=== PATIENT | male | born 1950 | race Two or more races ===

== ENCOUNTER → 2023-08-11 10:00 | Outpatient (REF) | payer MEDICARE, BC, SELFPAY | LOC: DHVS 10:00 | PROVIDERS: ATTENDING PHYSICIAN Surgery Vascular Surgery | DX: I73.9 Peripheral vascular disease, unspecified (principal) | CPT/HCPCS: 93922; 93925 ==

== ENCOUNTER → 2023-09-08 11:09 | Outpatient (REF) | payer MEDICARE, BC, SELFPAY | LOC: HWRAD 11:09 | PROVIDERS: ATTENDING PHYSICIAN Surgery Vascular Surgery | DX: I74.8 Embolism and thrombosis of other arteries (principal); I70.202 Unspecified atherosclerosis of native arteries of extremities, left leg | CPT/HCPCS: 71275; Q9967 ==

== ENCOUNTER → 2023-12-06 07:54 | Outpatient (REF) | payer MEDICARE, BC, SELFPAY ==
[2023-12-07 11:27] LABS: Protein S Total Antigen 168 % (84-134)
[2023-12-07 16:17] LABS: Anti-Thrombin III Activity 115 % (76-128)
[2023-12-07 20:50] LABS: Cardiolipin IgA Antibody <10 APL (<=11); Cardiolipin IgM Antibody <10 MPL (<=12); Cardiolipin Igg Antibody <10 GPL (<=14)
[2023-12-07 21:05] LABS: Beta-2-Glycoprotein I Ab. IgG <10 SGU (<=20); Beta-2-Glycoprotein I Ab. IgM <10 SMU (<=20)
[2023-12-08 00:21] LABS: Beta-2-Glycoprotein I Ab. IgA <10 SAU (<=20)
[2023-12-08 16:47] LABS: Anti-Xa Qualitative Interp Present (Not Present); Anticoagulant Med Neutralizati DOAC-Stop (Not Performed); Hexagonal Phospholipid Confirm Not Performed s (<=7.9); Neutralized PTT-LA Ratio Not Performed (<=1.20); Neutralized dRVTT Screen Ratio 1.58 (<=1.20); PTT-LA Ratio 0.94 (<=1.20); Prothrombin Time 14.2 s (12.0-15.5); Thrombin Time Not Performed s (<=19.5); dRVTT 1.1 Mix Ratio 1.26 (<=1.20); dRVTT Confirmation Ratio 1.25 (<=1.20); dRVTT Screen Ratio 1.62 (<=1.20)
[2023-12-09 21:11] LABS: Factor V Leiden Negative; Factor V Leiden Specimen Whole Blood
[2023-12-10 20:42] LABS: PT (F2) G20210A Variant Negative; Pt Gene Variant-PCR Specimen Whole Blood
== END ==
LOC: REG 07:54
PROVIDERS: ATTENDING PHYSICIAN Internal Medicine Hematology & Oncology
DX: I73.9 Peripheral vascular disease, unspecified (principal)
CPT/HCPCS: 36415; 81240; 81241; 85300; 85305; 85520; 85610; 85613; 85730; 86146; 86147

== ENCOUNTER 2023-12-06 17:40 | Inpatient (IN) | payer MEDICARE, BC, SELFPAY ==
[2023-12-06] VITALS (17 sets, daily range): BP systolic 90–144; BP diastolic 46–83; BMI 27.0
[2023-12-06 09:46] LABS: Hematocrit 40.1 % (39.0-52.0); Hemoglobin 13.4 g/dL (13.0-18.0); Mean Corp Hgb Conc. 33.4 g/dL (33.0-37.0); Mean Corpuscular Hgb 30.7 pg (27.0-31.0); Mean Platelet Volume 9.5 fL (7.4-10.4); Platelet Count 209 10^3/uL (130-400); Red Blood Cell Count 4.36 10^6/uL (4.70-6.10); Red Cell Dist. Width 13.2 % (11.5-14.5); White Blood Cell Count 10.7 10^3/uL (4.8-10.8)
[2023-12-06 09:53] LABS: INR 1.03; PT 13.4 Sec (11.4-14.6)
[2023-12-06 09:54] LABS: APTT 32.1 Sec (23.4-35.0)
[2023-12-06 10:04] LABS: Blood Urea Nitrogen 39 mg/dl (9-20); Carbon Dioxide 26 mmol/L (22-30); Chloride 101 mmol/L (98-107); Estimated Creatinine Clearance 45 ml/min; Glucose 136 mg/dl (70-99); Potassium 4.9 mmol/L (3.5-5.1); Sodium 139 mmol/L (135-145); eGFR 49.16
[2023-12-06 12:55] LABS: Glucose - Point of Care 121 mg/dl (70-99)
[2023-12-06] MEDS: NSS 500 IV (13:31)
--- NOTE | 2023-12-06 13:37 | W.SUR.PREOP ---
Pre-Operative Surgical Note
-
I have examined this patient prior to the performance of the scheduled procedure.
The patient's condition is unchanged from the time of the current History and
Physical and the patient is able to undergo the scheduled procedure.
[2023-12-06 16:10] LABS: ACT-LR - POC 255 Seconds (116-155)
--- NOTE | 2023-12-06 16:39 | CON.INTV ---
Consultation
Consultation Request
Date/Time Consultation Requested: 12-06-23
Date/Time Consultation Performed: 12-06-23
Requesting Provider: Dr Roberson
Performing Provider: Dr Gregory
Reason for Consultation: s/p LLE angiogram
Medical History
-
Chief Complaint: s/p LLE angiogram
History of Present Illness:
Mr Ariel Wtason is a 73/M adm 12-05 after LLE angiography.
During procedure cholesterol plaque showered, suspected embolization. First adm
Received L anterior tibial angioplasty, popliteal shock wave lithotripsy (report pending)
Seen at PACU, hemodyn stable, awake, mild incisional pain reported
Past Medical History
Past Medical History: Other (see A&P for PMH/PSH)
Social History
Tobacco: Former Smoker
Family History
Family History: Reviewed & Not Pertinent
Allergies / Home Medications
Allergies
Allergy/AdvReac Type Severity Reaction Status Date / Time
cefepime Allergy Anaphylaxis Verified 12/02/23 11:07
Home Medications
�Medication �Instructions �Recorded �Confirmed �Last Taken �Type
apixaban 5 mg tablet (Eliquis) 5 mg PO BID 12/02/23 12/06/23 12/02/23 21:30 History
aspirin 81 mg tablet,delayed 81 mg PO DAILY 12/02/23 12/06/23 12/06/23 05:00 History
release
atorvastatin 40 mg tablet 40 mg PO DAILY 12/02/23 12/06/23 12/05/23 21:30 History
cyanocobalamin (vitamin B-12) 1,000 mcg PO DAILY 12/02/23 12/06/23 12/05/23 21:30 History
1,000 mcg tablet (Vitamin B-12)
empagliflozin 10 mg tablet 10 mg PO DAILY 12/02/23 12/06/23 12/02/23 06:30 History
(Jardiance)
furosemide 20 mg tablet 20 mg PO DAILY 0612/02/23 12/05/23 06:30 History
gabapentin 100 mg capsule 200 mg PO TID 12/02/23 12/06/23 12/05/23 21:30 History
insulin aspart U-100 100 unit/mL 2 - 7 unit SC MEALS PRN Sliding 12/02/23 12/02/23 Unknown History
(3 mL) subcutaneous pen (Novolog Scale
FlexPen U-100 Insulin aspart)
insulin degludec 100 unit/mL (3 60 unit SC DAILY 12/02/23 12/06/23 12/06/23 05:00 History
mL) subcutaneous pen (Tresiba
FlexTouch U-100 insulin)
insulin regular human 100 unit/mL 18 unit SC MEALS 12/02/23 12/06/23 12/06/23 05:00 History
(3 mL) subcutaneous pen (Novolin R
FlexPen)
latanoprost (PF) 0.005 % eye drops 1 drp BOTH EYES HS 12/02/23 12/06/23 12/05/23 21:30 History
in a dropperette
levothyroxine 125 mcg tablet 125 mcg PO DAILY 12/02/23 12/06/23 12/06/23 05:00 History
metoprolol succinate 100 mg 50 mg PO BID 12/02/23 12/06/23 12/05/23 21:30 History
tablet,extended release 24 hr
omega 2-odx-shg-fish oil 1,000 mg 1 cap PO DAILY 12/02/23 12/02/23 12/05/23 06:30 History
(120 mg-180 mg) capsule (Fish Oil)
pantoprazole 40 mg tablet,delayed 40 mg PO DAILY 12/02/23 12/06/23 12/05/23 21:30 History
release
sacubitril 49 mg-valsartan 51 mg 1 tab PO BID 12/02/23 12/06/23 12/05/23 21:30 History
tablet (Entresto)
spironolactone 25 mg tablet 25 mg PO DAILY 12/02/23 12/02/23 12/05/23 06:30 History
Nervx B-12 1 cap PO BID 12/06/23 12/05/23 21:30 History
semaglutide 0.25 mg or 0.5 mg (2 0.25 mg SC QWEEK 12/06/23 12/06/23 12/05/23 06:30 History
mg/1.5 mL) subcutaneous pen
injector (Ozempic)
Review of Systems
-
History Source: Patient
All other systems: Negative unless noted
Constitutional: Fatigue
Cardiac: Other (incisional pain at R groin)
Vitals / Labs / Diagnostic Testing
Vital Signs
Temp Pulse Resp BP Pulse Ox
97.5 F 64 16 134/62 100
12/06/23 12:30 12/06/23 12:30 12/06/23 12:30 12/06/23 12:30 12/06/23 12:30
Laboratory Results
12/06/23
09:22
PT 13.4
INR 1.03
APTT 32.1
Diagnostic Testing:
Physical Exam
-
HEENT: Normocephalic and Moist Mucous Membranes
Cardiovascular: Regular Rhythm, Murmur (n), Other (R BKA) and Other (L 2nd toe necrosis)
Respiratory: Clear and Non-Labored Respirations
GI: Soft, Non Distended and Non Tender
Neurology: Awake, Oriented and No Motor Deficits
Skin: Warm
General: Respiratory Distress (n)
Assessment
-
Assessment:
Mr Ariel Watson is a 73/M adm 12-05 after LLE angiography. During procedure cholesterol plaque showered. First DH adm
Impression:
PAD
S/p L anterior tibial angioplasty, popliteal shock wave lithotripsy
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
PAD
DM
HTN
HLD
Hypothyroidism
R BKA
Former smoker
Plan:
Postoperative surgical intensive care unit monitoring
Supplemental oxygen as needed
Incentive spirometry
Aspiration precautions
Neuro and vascular checks per protocol
Suspected cholesterol plaque embolization reported
Vascular surgery following-correspondence and operative notes reviewed
DVT prophylaxis
Early nutrition
Early mobilization
Critical care time: 35 min
[2023-12-06 17:04] LABS: ACT-LR - POC 244 Seconds (116-155)
[2023-12-06 18:18] LABS: Glucose - Point of Care 111 mg/dl (70-99)
[2023-12-06 18:38] LABS: Hematocrit 34.3 % (39.0-52.0); Hemoglobin 12.1 g/dL (13.0-18.0); Mean Corp Hgb Conc. 35.3 g/dL (33.0-37.0); Mean Corpuscular Volume 87.9 fL (80.0-94.0); Mean Platelet Volume 9.5 fL (7.4-10.4); Platelet Count 185 10^3/uL (130-400); Red Cell Dist. Width 13.5 % (11.5-14.5); White Blood Cell Count 8.9 10^3/uL (4.8-10.8)
[2023-12-06 18:51] LABS: INR 1.29; PT 15.9 Sec (11.4-14.6)
[2023-12-06] MEDS: NSS 1000 IV (18:52)
--- NOTE | 2023-12-06 18:55 | W.IMMPOSTOP ---
Surgical Immed Post Op Note
-
Primary Surgeon: Dr. Sravan Roberson III, MD
Assisting Surgeon: Dr. Chuckie Tobin MD, PhD (PGY-1)
Pre-op Diagnosis: Peripheral occlusive vascular disease left lower extremity
Post-op Diagnosis: Peripheral occlusive vascular disease left lower extremity
Procedure Performed: Diagnostic arteriogram, intravascular lithotripsy of the popliteal artery, proximal AT, PT trunk, balloon angioplasty, catheter directed lysis with tPA
Anesthesia Type: MAC
Specimen / Cultures: None
Estimated Blood Loss: 50cc
Complications: None
Operative Findings: The patient was brought to the OR and placed in the supine position. Following induction with anesthesia, the patient was prepped and draped in usual sterile fashion. C arm was used to identify the superior and inferior
boundaries of the femoral head and these were marked at the skin level. Ultrasound guidance was then used to identify the common femoral artery and local anesthetic was injected into the subcutaneous tissue. Micropuncture needle was used to access
the right FAMILY SUPPORT COORDINATOR. This was upsized to a 5-yoruba sheath over wire. Then using a woodward's hook catheter and guidewire, we were able to access the abdominal aorta. Diagnostic angiogram showed patient iliac vessels bilaterally. We then selected the left
external iliac and femoral artery with a guidewire followed by a quickcross catheter. Diagnostic arteriogram showed a patent iliofemoral system and SFA but with occlusive disease in the behind knee popliteal artery, proximal AT, and PT trunk at the
bifurcation of the peroneal and TP arteries. Distally, there was runoff in the AT, minimal run off in the peroneal artery, and no flow in the PT artery. At this point, thrombus was noted on arteriogram, limiting flow to the AT, peroneal, and PT
vessels. The decision was made to inject tPA locally in the AT and peroneal artery. Intravascular lithotripsy was then performed in the proximal AT, PT trunk, and popliteal artery. After this, completion arteriogram showed improved flow in the AT
and peroneal artery, with sluggish flow similar to baseline in the PT artery. The sheath was removed and perclose device was used to close the right groin access site. The patient had a strong doppler signal in the left DP and faint doppler signal
in the left PT. The patient was transferred to the PACU in stable condition and started on a heparin gtt.
[2023-12-06 19:04] LABS: Blood Urea Nitrogen 34 mg/dl (9-20); Calcium 9.1 mg/dl (8.4-10.2); Carbon Dioxide 23 mmol/L (22-30); Chloride 106 mmol/L (98-107); Estimated Creatinine Clearance 67 ml/min; Glucose 118 mg/dl (70-99); Potassium 4.6 mmol/L (3.5-5.1); Sodium 137 mmol/L (135-145); eGFR > 60.00
--- NOTE | 2023-12-06 19:05 | OR.RPT ---
Operative Report
Operative Report
Date of Operation: 12/06/2023
Pre Op Diagnosis: Critical limb threatening ischemia, left lower extremity manifested by necrotic nonhealing toe wound
Post Op Diagnosis: Critical limb threatening ischemia, left lower extremity manifested by necrotic nonhealing toe wound
Procedure:
1.) Balloon angioplasty of anterior tibial artery (2 mm x 80 mm distally; 3 mm x 150 mm proximally)
2.) Balloon angioplasty of peroneal artery (2 mm x 80 mm)
3.) Intravascular lithotripsy to tibioperoneal trunk stenosis (4 mm x 60 mm M5+ Shockwave balloon)
4.) Intravascular lithotripsy to popliteal artery stenosis (4 mm x 60 mm M5+ Shockwave balloon)
5.) Intravascular lithotripsy to anterior tibial artery origin stenosis (4 mm x 60 mm M5+ Shockwave balloon)
6.) Direct arterial injection of TPA to anterior tibial and peroneal artery
7.) Diagnostic [id number] arteriogram
8.) Diagnostic left lower extremity arteriogram
9.) Ultrasound-guided percutaneous access to the right common femoral artery
10.) ProGlide closure to right femoral artery access
Surgeon: Sravan Roberson III, MD
Jointer Operator: Chuckie Tobin MD PhD, PGY1
Anesthesia: Sedation with local
Fluoroscopy:
68.4 min
198 mGy
35.08 Gy.cm2
Complications: None
Estimated Blood Loss: 50 cc
History and Indications for Procedure: 73-year-old male with critical limb threatening ischemia of the left lower extremity manifested by nonhealing necrotic second toe wound
Procedure in Detail: Ariel Watson was correctly identified and placed supine on the operating table. After adequate induction of anesthesia the bilateral groins were prepped and draped in the usual sterile fashion. A timeout was performed with
the nursing and anesthesia staff confirming the patient's identity as well as the nature and laterality of the procedure.
The right common femoral artery was identified under ultrasound guidance. The artery was patent. The superior and inferior aspects of the femoral head were identified with radiographic guidance and marked at the skin level. The proposed puncture
site was infiltrated with local anesthesia. We saved a copy of the ultrasound image to the medical record. Under ultrasound guidance we accessed the right common femoral artery with a micropuncture needle and upsized to a 5 Fr sheath over a Aspida
wire. The wire and a Shepherds hook flush catheter were advanced into the distal abdominal aorta and a diagnostic aorto-biiliac arteriogram was performed:
AORTO-ILIAC ARTERIOGRAM:
Aorta: Widely patent with no stenosis identified
Right common iliac artery: Widely patent with no stenosis identified
Right external iliac artery: Widely patent with no stenosis identified
Left common iliac artery: Widely patent with no stenosis identified
Left external iliac artery: Widely patent with no stenosis identified
Under roadmap guidance using a Glidewire and the Shepherds hook catheter we selected the left common iliac artery and then the external iliac artery. A catheter was tracked up and over the aortic bifurcation and placed in the distal external iliac
artery. A diagnostic left lower extremity arteriogram was then performed which demonstrated the following:
LEFT LOWER EXTREMITY:
Common femoral artery: Patent with no stenosis identified
Profunda femoral artery: Patent with no stenosis identified
Superficial femoral artery: Patent with no stenosis identified
Popliteal artery: Patent. Focal moderate to high-grade stenosis behind the knee, calcified. Below-knee popliteal artery patent
Anterior tibial artery: High-grade focal stenosis at the origin. Patent distally. Stenosis identified near the ankle. The dorsalis pedis artery appears to occlude and significant small vessel disease is identified in the foot
Tibioperoneal trunk: Patent. Calcified stenosis identified with focal calcified plaque near the AT origin
Peroneal artery: Patent to the ankle
Posterior tibial artery: Patent proximally for a short segment, occludes thereafter with no distal reconstitution. Severe small vessel occlusive disease identified in the plantar distribution.
ENDOVASCULAR INTERVENTION: Systemic heparin was administered. Selected the superficial femoral artery and popliteal artery with a Glidewire and woodward's hook catheter. Exchanged out for a 6 Fr 90 cm sheath over a StorTirendo wire. Radiopaque tip was
placed in the popliteal artery. The anterior tibial artery and the peroneal artery were alejandra wired in an attempt to perform intravascular lithotripsy. On subsequent arteriograms evidence of nonocclusive thrombus was identified in the popliteal
artery and tibioperoneal trunk and occlusive thrombus was identified in the anterior tibial artery and peroneal artery. At this point we altered the approach. I advanced a Quickcross catheter down the distal anterior tibial artery at the ankle. 8
mg of tPA was injected into the anterior tibial artery, 4 mg distally into the foot and an additional 4 mg slowly as the catheter was pulled back across the length of the anterior tibial artery. After several minutes subsequent arteriogram
demonstrated sluggish flow in the anterior tibial artery with what appeared to be a distal occlusion. We were able to navigate the 0.014 wire distally across the ankle and into the foot. I performed balloon angioplasty on the distal anterior
tibial artery with a 2 mm x 80 mm angioplasty balloon. In the mid to proximal segments I performed balloon angioplasty with a 3 mm x 80 mm angioplasty balloon, including the AT origin. Following this there was still evidence of distal occlusion in
the AT. I made an attempt to pass the Penumbra CAT Rx catheter over the 014 wire in the anterior tibial artery but was unsuccessful at navigating around the proximal AT. I therefore abandoned additional attempts. I once again performed balloon
angioplasty on the anterior tibial artery with the same balloons and subsequent arteriogram then demonstrated improved flow through the anterior tibial artery and into the foot, similar to what was seen on the initial arteriogram. Once again
identified was a high-grade stenosis at the AT origin which seemed not to respond fully to angioplasty alone.
I then focused my attention on addressing the tibioperoneal trunk and peroneal artery thrombus. I navigated a Quickcross catheter down the tibioperoneal trunk and distal peroneal artery. I injected 4 mg of tPA slowly while pulling the catheter
back across the entire length of peroneal artery. Subsequent arteriogram demonstrated residual thrombus and disease at the origin of the peroneal artery. I performed balloon angioplasty on the proximal peroneal artery and TP trunk with both a 2 mm
and a 3 mm angioplasty balloon. Subsequent arteriograms demonstrated sluggish flow through the peroneal artery with no significant improvement. I once again performed balloon angioplasty using the same 2 mm and 3 mm angioplasty balloons with
longer inflation times. Subsequent arteriogram demonstrated some improvement in flow through the TP trunk and proximal peroneal however there was segmental occlusion distally. I did not make an attempt to pass the Penumbra catheter into the
peroneal artery given that I had significant challenges in doing this with the anterior tibial.
Once we had reestablished distal flow with the interventions above, we then focused our attention on the calcified residual stenosis in the TP trunk, AT origin and popliteal artery. Under roadmap guidance I brought into position a 4 mm x 60 mm M5+
Shockwave balloon. This was positioned in the tibioperoneal trunk initially. Alternating rounds of lithotripsy pulse delivery at sub-nominal pressure and angioplasty at sub-nominal pressure was performed across the TP trunk stenosis. In between
rounds of pulse delivery and angioplasty the balloon was deflated and repositioned under roadmap guidance. We then pulled the balloon back and treated the focal popliteal artery stenosis behind the knee in a similar fashion. Following this I
re-selected the anterior tibial artery with the 0.014 wire. The balloon was readvanced across the anterior tibial artery origin stenosis. We then delivered the remaining pulses to the proximal/origin anterior tibial artery stenosis at sub-nominal
pressure. A total of 300 pulses were delivered.
COMPLETION ARTERIOGRAM: Patent popliteal artery with no significant residual stenosis. Improved appearance of the proximal/origin anterior tibial artery stenosis with some residual stenosis identified. Patent anterior tibial artery distally to the
foot. Again demonstrated was an occluded dorsalis pedis artery with significant small vessel disease in the foot. Posterior tibial artery was occluded with no distal reconstitution identified. Significant small vessel disease in the plantar
distribution. The tibioperoneal trunk was patent. Peroneal artery was occluded with segmental distal reconstitution identified.
Satisfied with this result we concluded the procedure. The sheath tip was pulled back into the right external iliac artery. A single Pro-glide closure device was used to close the right femoral artery access after removal of the sheath and wire.
The patient tolerated the procedure well and was taken to the recovery area in stable condition. The patient had an easily audible Doppler signal in the left DP at the conclusion of the case.
Attestation: I was present and responsible for the entire procedure.
Signed:
Sravan Roberson III, MD
[facility]
[phone] (fzvl)
[2023-12-06 19:16] LABS: APTT > 200 Sec (23.4-35.0)
--- NOTE | 2023-12-06 19:43 | PTCARENOTE ---
Rec'd patient from PACU. VSS. +Doppler dp and pt on ADDY. +Popliteal doppler pulse on RLE. Dr. Boyer notified PTT >200. Heparin gtt not initiated. RN instructed to recheck PTT in 4 hours.
[2023-12-06] MEDS: NOVOLOG FLEXPEN-HIGH RESISTANCE SC (20:06)
[2023-12-06] MEDS: TOPROL XL 50 MG PO (20:51)
[2023-12-06] MEDS: ENTRESTO 49 MG/51 MG 1 TAB PO (20:51)
[2023-12-06] MEDS: NEURONTIN 200 MG PO (21:39)
[2023-12-06] MEDS: XALATAN OPHTHALMIC SOLUTION 1 DROP BOTH EYES (21:39)
[2023-12-06 21:53] LABS: Glucose - Point of Care 161 mg/dl (70-99)
[2023-12-06] MEDS: HEPARIN 25000 UNITS/250 ML IV (23:25)
--- NOTE | 2023-12-06 23:34 | PTCARENOTE ---
PTT 33.0. Heparin gtt initiated. Next PTT due at 0530.
[2023-12-07] VITALS (14 sets, daily range): BP systolic 91–132; BP diastolic 37–66; BMI 27.0
[2023-12-07] MEDS: TYLENOL 650 MG PO (02:10)
--- NOTE | 2023-12-07 03:49 | DOWNTIME ---
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 Downtime documentation of patient's care, including medication administrations, has been reconciled in the electronic record per guidelines. Refer to the
patient's paper chart under the miscellaneous tab to see printed paper medication records and downtime forms.
--- NOTE | 2023-12-07 04:50 | PTCARENOTE ---
Neurovascular checks unchanged. VSS. No complaints.
[2023-12-07] MEDS: SYNTHROID 125 MCG PO (05:36)
[2023-12-07 05:50] LABS: Hematocrit 31.4 % (39.0-52.0); Hemoglobin 10.5 g/dL (13.0-18.0); Mean Corp Hgb Conc. 33.4 g/dL (33.0-37.0); Mean Corpuscular Hgb 30.4 pg (27.0-31.0); Mean Platelet Volume 9.8 fL (7.4-10.4); Platelet Count 169 10^3/uL (130-400); Red Blood Cell Count 3.45 10^6/uL (4.70-6.10); Red Cell Dist. Width 13.2 % (11.5-14.5); White Blood Cell Count 9.2 10^3/uL (4.8-10.8)
[2023-12-07 05:56] LABS: INR 1.21; PT 15.1 Sec (11.4-14.6)
[2023-12-07 05:58] LABS: APTT 102.5 Sec (23.4-35.0)
[2023-12-07 06:34] LABS: Blood Urea Nitrogen 32 mg/dl (9-20); Calcium 8.5 mg/dl (8.4-10.2); Carbon Dioxide 19 mmol/L (22-30); Chloride 108 mmol/L (98-107); Estimated Creatinine Clearance 74 ml/min; Glucose 171 mg/dl (70-99); Potassium 4.7 mmol/L (3.5-5.1); Sodium 136 mmol/L (135-145); eGFR > 60.00
[2023-12-07] MEDS: NOVOLOG FLEXPEN-HIGH RESISTANCE 2 UNITS SC (08:06)
[2023-12-07] MEDS: VITAMIN B-12 1000 MCG PO (08:07)
[2023-12-07] MEDS: LASIX 20 MG PO (08:07)
[2023-12-07] MEDS: JARDIANCE 10 MG PO (08:07)
[2023-12-07] MEDS: TOPROL XL 50 MG PO (08:07)
[2023-12-07] MEDS: LIPITOR 40 MG PO (08:07)
[2023-12-07] MEDS: ASPIR LOW (ENTERIC COATED) 81 MG PO (08:07)
[2023-12-07] MEDS: ALDACTONE 25 MG PO (08:07)
[2023-12-07] MEDS: ENTRESTO 49 MG/51 MG 1 TAB PO (08:07)
[2023-12-07] MEDS: PROTONIX 40 MG PO (08:07)
[2023-12-07] MEDS: NEURONTIN 200 MG PO (08:08)
[2023-12-07] MEDS: LANTUS 0.599999999999999978 UNITS SC (08:10)
[2023-12-07 08:16] LABS: Glucose - Point of Care 185 mg/dl (70-99)
--- NOTE | 2023-12-07 08:44 | W.PN.VS ---
Addendum entered and electronically signed by Oleg Gaytan MD 12/07/23 08:57:
Seen and examined with GONZALES Rodriguez and GONZALES Crain. Patient without significant complaints this morning. No significant pain in his left foot. Abdomen is soft, nondistended, nontender. Right groin puncture site flat, no hematoma. Left foot warm with
dopplerable signals. Second toe dry gangrene stable. Plan/as discussed and noted below. Resume anticoagulation. For lower extremity venous ultrasound today. Further plan for any further revascularization per Dr. Roberson. Can follow-up in the
office with him.
Original Note:
Today's Communication / Plan
-
Seen and assessed with Dr. Gaytan
Assessment/Plan
-
Assessment: 73-year-old male POD #1
Balloon angioplasty of anterior tibial artery (2 mm x 80 mm distally; 3 mm x 150 mm proximally)
Balloon angioplasty of peroneal artery (2 mm x 80 mm)
Intravascular lithotripsy to tibioperoneal trunk stenosis (4 mm x 60 mm M5+ Shockwave balloon)
Intravascular lithotripsy to popliteal artery stenosis (4 mm x 60 mm M5+ Shockwave balloon)
Intravascular lithotripsy to anterior tibial artery origin stenosis (4 mm x 60 mm M5+ Shockwave balloon)
Direct arterial injection of TPA to anterior tibial and peroneal artery
Diagnostic dhurg-dd-jkpzu arteriogram
Diagnostic left lower extremity arteriogram
Ultrasound-guided percutaneous access to the right common femoral artery
ProGlide closure to right femoral artery access
Plan:
-Resume Eliquis today, DC heparin
-Lower extremity venous ultrasound
-October DC after ultrasound complete
-Patient aware of follow-up in office
Subjective Data
-
Date of Service: December 07, 2023
Patient seen and examined at bedside, offers no complaints. Denies nausea, vomiting, fever, and chills. Denies pain at left foot. Reports eagerness for discharge to home.
Objective Data
-
Vital Signs
Temp Pulse Resp BP Pulse Ox
99.7 F 80 25 100/54 93
12/07/23 04:17 12/07/23 06:00 12/07/23 06:00 12/07/23 06:00 12/07/23 06:00
Intake and Output
12/06/23 12/07/23 12/08/23
06:59 06:59 06:59
Intake Total 1060 / 1060
Output Total 950 / 950
Balance 110 / 110
Intake:
IV fluids (Total) 1060 / 1060
nss 1060 / 1060
Output:
Urine, Voided 950 / 950
Lab Results
12/07/23 05:32
12/07/23 05:32
Calcium 8.5 mg/dl (8.4-10.2) 12/07/23 05:32
Physical Exam
-
AAOx3, no apparent distress, resting in bed comfortably
No tachycardia
No dyspnea on room air
ABD flat, nontender, nondistended
Right groin dressing CDI, no evidence of hematoma, all surrounding compartments soft, Exofin glue and CDI
Left DP signal present, foot warm
[2023-12-07] MEDS: ELIQUIS 5 MG PO (08:47)
--- NOTE | 2023-12-07 09:53 | PTCARENOTE ---
Received pt awake and alert.Speech is appropriate.+VALDEZ.Pt ambulates with right leg prosthetic.Denies pain.SR with 1st degree AVB noted.Heparin gtt discontinued as ordered.POX 94% on RA.Lungs CTA.Appetite good.BM x2.Voiding yellow urine.Right groin
incision intact with surgical adhesive.No drainage noted.Plan of care discussed.
--- NOTE | 2023-12-07 10:08 | WOUNDNOTE ---
L 2ND TOE MEDIAL
--- NOTE | 2023-12-07 10:08 | WOUNDNOTE ---
L 2ND TOE PLANTAR
--- NOTE | 2023-12-07 10:09 | WOUNDNOTE ---
HAIDER RN note: Patient admitted with critical limb ischemia L foot.
See H&P for complete history.
PMH: R BKA 2019, CABG 2013, PAD,HTN,PR,DM, Stroke and diabetic neuropathy.
Wound Location and type/assessment: Patient admitted with: L 2nd toe medially and plantar with black eschar, skin warm and dry. Patient had balloon angioplasty for occluded dorsalis pedis and posterior tibial artery on 12/[address] Roberson. Patient
for discharge later today per nurse Page. Patient reports he has been keeping wound dry with Betadine swab and dry dressing, has supplies at home. L heel blanchable red, patient states it is a little sore. Pillow in use under L leg to offload heel.
Patient turned to side, sacrum is intact. R BKA site with incisional scar otherwise intact.
Appetite: Good.
Pressure redistribution devices in place: On air mattress, turns self.
Plan: Betadine and dry dressing. Reviewed wound care with patient. Applied silicone foam to L heel to protect. Called SPD for Betadine swabs, nurse Page made aware and will add to wound care supplies to take upon discharge. Will confirm orders with
vascular and updated nurse. Updated care plan and discharge instructions.
Patient confirmed he is scheduled to follow up with vascular upon discharge.
Note to case management of equipment requested for discharge: None.
--- NOTE | 2023-12-07 10:20 | W.PN.INTV ---
Documented by User: Susanna Orlando, Resident, 12/07/23 10:24
Today's Communication / Plan
Recommendations
IS
Aspiration precautions
Assessment
-
Assessment:
Mr Ariel Watson is a 73/M adm 12-05 after LLE angiography. During procedure cholesterol plaque showered. First DH adm
Impression:
PAD
S/p L anterior tibial angioplasty, popliteal shock wave lithotripsy
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
PAD
DM
HTN
HLD
Hypothyroidism
R BKA
Former smoker
Plan:
Postoperative surgical intensive care unit monitoring
Supplemental oxygen as needed
Incentive spirometry
Aspiration precautions
Neuro and vascular checks per protocol
Suspected cholesterol plaque embolization reported
Vascular surgery following-correspondence and operative notes reviewed
Lower extremity venous ultrasound as per vascular
Further follow up as outpatient
DVT prophylaxis- resume anticoagulation
Early nutrition
Early mobilization
Subjective Dataa
Subjective Data
Date of Service:
Date of Service: December 07, 2023
Chief Complaint: Change Advisor Follow Up
Subjective:
Patient was seen at bedside and had no acute overnight events.
Review of Systems
General: Other (negative unless stated otherwise)
Objective Data
Data Reviewed
Vital Signs / I&O / Oxygen:
Vital Signs
Temp Pulse Resp BP Pulse Ox
98.2 F 77 15 112/52 95
12/07/23 08:30 12/07/23 09:45 12/07/23 09:45 12/07/23 09:04 12/07/23 08:30
Intake and Output
12/06/23 12/07/23 12/08/23
06:59 06:59 06:59
Intake Total 1060 / 1060 240 / 240
Output Total 950 / 950 60 / 60
Balance 110 / 110 180 / 180
SaO2 95
Nasal Cannula flow liters per 4
minute
Physical Exam
General: Comfortable
HEENT: Normocephalic
Cardiovascular: S1-S2 and Other (L 2nd toe necrosis)
Respiratory: Clear
GI: Soft, Non Distended and Non Tender
Neurology: Awake, Alert and Oriented
Labs/Micro/Reports
Lab Data
12/07/23 05:32
12/07/23 05:32
Laboratory Results
12/06/23 12/06/23 12/06/23
18:30 18:35 22:47
PT 15.9 H
INR 1.29
APTT > 200 H* Cancelled 33.0
12/07/23
05:32
PT 15.1 H
INR 1.21
APTT 102.5 H

Documented by User: Jareth Gregory MD 12/07/23 12:31
Today's Communication / Plan
Recommendations
IS
Aspiration precautions
D/c per vasc sx
Assessment
-
Assessment:
Mr Ariel Watson is a 73/M adm 12-05 after LLE angiography. During procedure cholesterol plaque showered. First DH adm
Impression:
PAD
S/p balloon angioplasty of L anterior tibial/peroneal, lithotripsy of tibioper trunk, popliteal stenosis and ant tibial arteries: 12-05
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
PAD
DM
HTN
HLD
Hypothyroidism
R BKA
Former smoker
Plan:
Postoperative surgical intensive care unit monitoring completed
Supplemental oxygen as needed
Incentive spirometry
Aspiration precautions
Neuro and vascular checks per protocol
Suspected cholesterol plaque embolization reported: no clinical evidence of livedo reticularis on physical exam
Vascular surgery following-correspondence and operative notes reviewed
Lower extremity venous ultrasound as per vascular
Further follow up as outpatient
DVT prophylaxis- resume anticoagulation
Early nutrition
Early mobilization
Disposition per vasc sx
For d/c today
Reconsult as needed
ATTENDING PHYSICIAN ATTESTATION:
(Follow-up Visit:)
I personally saw and evaluated the patient along with the Resident Dr Orlando.
Discussed with Resident and discussed in rounds with MDT.
I agree with Resident�s findings and plan as documented in the resident�s note, which was edited by myself.
D/w Mr Watson
Subjective Dataa
Subjective Data
Subjective:
Patient was seen at bedside and had no acute overnight events.
Denies major complaints
Seen at bedside with GLOBAL ANALYTICS HEAD
Objective Data
Physical Exam
HEENT: Moist Mucous Membranes
Cardiovascular: Regular Rhythm and JVD (n)
Respiratory: Non-Labored Respirations and Stridor (n)
Neurology: AO x 3 and No Motor Deficits
Skin: Other (L 2nd toe necrosis)
--- NOTE | 2023-12-07 10:43 | CM ---
property utilization manager reviewed patient's chart and met with patient and patient lives with spouse in a 2 story home, patient is independent with adl's and ambulation, patient with prothesis. Patient has a prescription plan and uses [facility], home no
needs when stable.
Plan; Home no needs.
[2023-12-07] MEDS: NOVOLOG FLEXPEN-HIGH RESISTANCE 4 UNITS SC (11:45)
[2023-12-07 11:59] LABS: Glucose - Point of Care 241 mg/dl (70-99)
--- NOTE | 2023-12-07 14:15 | W.DS.TRANS ---
DC Summary - Aircraft Systems Technician
-
Discharge Instructions:
Sleep Apnea Risk Intermediate
Discharge Diagnosis/Procedures Balloon angioplasty of anterior tibial artery (2
mm x 80 mm distally; 3 mm x 150 mm proximally)
Balloon angioplasty of peroneal artery (2 mm x
80 mm)
Intravascular lithotripsy to tibioperoneal trunk
stenosis (4 mm x 60 mm M5+ Shockwave balloon)
Intravascular lithotripsy to popliteal artery
stenosis (4 mm x 60 mm M5+ Shockwave balloon)
Intravascular lithotripsy to anterior tibial
artery origin stenosis (4 mm x 60 mm M5+
Shockwave balloon)
Direct arterial injection of TPA to anterior
tibial and peroneal artery
ProGlide closure to right femoral artery access
Diet As tolerated
Activity No strenuous activity
Driving Restrictions As prior to admission
Bathing Restrictions OK to Shower
Instructions:
Stand-Alone Forms: DC Instr - Vascular OR
Changes to Home Medications: No
Discharge Medications:
DC Medications w/original date entered in [employer]
apixaban 5 mg tablet (Eliquis) 5 mg PO BID Blood Clot Prevention/Tx 12/02/23
aspirin 81 mg tablet,delayed release 81 mg PO DAILY Blood Clot Prevention/Tx 12/02/23
atorvastatin 40 mg tablet 40 mg PO DAILY High Cholesterol 12/02/23
cyanocobalamin (vitamin B-12) 1,000 mcg tablet (Vitamin B-12) 1,000 mcg PO DAILY Supplement 12/02/23
empagliflozin 10 mg tablet (Jardiance) 10 mg PO DAILY Diabetes 12/02/23
furosemide 20 mg tablet 20 mg PO DAILY Fluid Retention/Swelling 12/02/23
gabapentin 100 mg capsule 200 mg PO TID Pain 12/02/23
insulin aspart U-100 100 unit/mL (3 mL) subcutaneous pen (Novolog FlexPen U-100 Insulin aspart) 2 - 7 unit SC MEALS PRN Sliding Scale 12/02/23
insulin degludec 100 unit/mL (3 mL) subcutaneous pen (Tresiba FlexTouch U-100 insulin) 60 unit SC DAILY Diabetes 12/02/23
insulin regular human 100 unit/mL (3 mL) subcutaneous pen (Novolin R FlexPen) 18 unit SC MEALS Diabetes 12/02/23
latanoprost (PF) 0.005 % eye drops in a dropperette 1 drp BOTH EYES HS Eye Condition 12/02/23
levothyroxine 125 mcg tablet 125 mcg PO DAILY Thyroid 12/02/23
metoprolol succinate 100 mg tablet,extended release 24 hr 50 mg PO BID Heart Failure 12/02/23
omega 3-wpa-hwo-fish oil 1,000 mg (120 mg-180 mg) capsule (Fish Oil) 1 cap PO DAILY Supplement 12/02/23
pantoprazole 40 mg tablet,delayed release 40 mg PO DAILY GERD 12/02/23
sacubitril 49 mg-valsartan 51 mg tablet (Entresto) 1 tab PO BID Heart Failure 12/02/23
spironolactone 25 mg tablet 25 mg PO DAILY Fluid Retention/Swelling 12/02/23
Nervx B-12 1 cap PO BID Supplement 12/06/23
semaglutide 0.25 mg or 0.5 mg (2 mg/1.5 mL) subcutaneous pen injector (Ozempic) 0.25 mg SC QWEEK Diabetes 12/06/23
Home Medication Changes
Pending Results: No
--- NOTE | 2023-12-07 14:15 | W.DCSUMMARY ---
Discharge Summary
Discharge Data
Date of Admission: 12/06/23
Date of Discharge: 12/07/23
-
Pending Results: No
Hospital Course
Attending: Karol
Consultants: Pulmonary medicine
Allergies: Cefepime
Procedure with date: 12/06/2023: Balloon angioplasty of the AT artery x 2, balloon angioplasty of peroneal artery, IV L to tibioperoneal trunk, popliteal, AT artery origin, direct arterial injection of tPA to AT and peroneal artery, Pro-glide closure
to right femoral artery access
History of present illness: The patient is an 73-year-old male with multiple medical conditions including: Diabetes, peripheral arterial disease, hypertension, hyperlipidemia, thyroid disease, right BKA, cataract surgery. Patient presented on
12/06/2023 for scheduled procedure with Dr. Roberson. Patient presented at baseline health with no reports of recent illness or trauma.
Hospital Course: Briefly, the patient underwent scheduled lower extremity arteriogram without complications, and recovered in PACU. Following recovery phase one and two patient was transferred to intensive care unit per protocol for continued
hemodynamic monitoring. Quickbooks Bookkeeper consulted to aid in medical management from a critical care perspective. POD #1 (12/07/2023) Patient recovering well, and tolerating PO diet. Surgical groin site clean, dry, and intact with no drainage and soft. No
evidence of hematoma. IV fluids discontinued. Patient able to ambulate without difficulty or incident. Patient stable for discharge to home.
Prescriptions and follow up appointment are included in the DC summary treating and pumping supervisor note. All instructions were given to the patient in both written and verbal form and the patient expressed understanding.
Discharge Plan
-
Patient Disposition: Home (Routine Discharge)
Discharge Diagnosis/Procedures: Balloon angioplasty of anterior tibial artery (2 mm x 80 mm distally; 3 mm x 150 mm proximally)
Balloon angioplasty of peroneal artery (2 mm x 80 mm)
Intravascular lithotripsy to tibioperoneal trunk stenosis (4 mm x 60 mm M5+ Shockwave balloon)
Intravascular lithotripsy to popliteal artery stenosis (4 mm x 60 mm M5+ Shockwave balloon)
Intravascular lithotripsy to anterior tibial artery origin stenosis (4 mm x 60 mm M5+ Shockwave balloon)
Direct arterial injection of TPA to anterior tibial and peroneal artery
ProGlide closure to right femoral artery access
Condition: Good
Diet: As tolerated
Activity: No strenuous activity
Driving Restrictions: As prior to admission
Bathing Restrictions: OK to Shower
Activity Restrictions/Additional Instructions:
Wound Care Instructions
L 2ND TOE: PAINT WITH BETADINE THEN 1 PIECE 2X2 GAUZE, 1 PIECE OF FOLDED 4X4 GAUZE AND PAPER TAPE, CHANGE Q OTHER DAY AND PRN SOILAGE.
CAN SHOWER, WASH WITH SOAP AND WATER, DRY TOES AND APPLY THE ABOVE.
Follow up with Dr. Roberson as scheduled
Stand Alone Forms: DC Instr - Vascular OR
Referrals:
Sravan Roberson III, MD [Active] - 12/21/23 8:00 am (Vascular surgery planning discussion)
UNKNOWN - PT DOES,NOT KNOW [Family Provider] -
Prescriptions:
Continued
atorvastatin 40 mg Tablet
40 mg PO DAILY
metoprolol succinate 100 mg Tablet Extended Release 24 Hr
50 mg PO BID
cyanocobalamin (vitamin B-12) [Vitamin B-12] 1,000 mcg Tablet
1,000 mcg PO DAILY
aspirin 81 mg Tablet,Delayed Release (Dr/Ec)
81 mg PO DAILY
spironolactone 25 mg Tablet
25 mg PO DAILY
pantoprazole 40 mg Tablet,Delayed Release (Dr/Ec)
40 mg PO DAILY
levothyroxine 125 mcg Tablet
125 mcg PO DAILY
furosemide 20 mg Tablet
20 mg PO DAILY
gabapentin 100 mg Capsule
200 mg PO TID
Novolin R FlexPen 100 unit/mL (3 mL) Insulin Pen
18 unit SC MEALS
insulin aspart U-100 [Novolog FlexPen U-100 Insulin] 100 unit/mL (3 mL) Insulin Pen
2 - 7 unit SC MEALS PRN (Reason: Sliding Scale)
omega 1-hhh-lfo-fish oil [Fish Oil] 1,000 mg (120 mg-180 mg) Capsule
1 cap PO DAILY
Eliquis 5 mg Tablet
5 mg PO BID
insulin degludec [Tresiba FlexTouch U-100] 100 unit/mL (3 mL) Insulin Pen
60 unit SC DAILY
Jardiance 10 mg Tablet
10 mg PO DAILY
Entresto 49-51 mg Tablet
1 tab PO BID
latanoprost (PF) 0.005 % Dropperette
1 drp BOTH EYES HS
Ozempic 0.25 mg or 0.5 mg(2 mg/1.5 mL) Pen Injector
0.25 mg SC QWEEK
Rx Instructions:
for 4 weeks
Nervx B-12
1 cap PO BID
Discharge Orders:
Discharge Patient (As Directed); Ordered 12/07/23
Ordered By: Anjana Rodriguez
Discharge Date and Time
Discharge Date/Time: 12/07/23 13:15
Print Language: MALTESE
[2023-12-08 19:10] LABS: Hepatitis C Antibody Negative (Negative)
== END 2023-12-07 13:15 | disposition home or self-care (01) | DRG 279 ==
LOC: ICU 17:40
PROVIDERS: Nurse Practitioner; Student in an Organized Health Care Education/Training Program; Surgery; ADMITTING PHYSICIAN Surgery Vascular Surgery; CONSULT PHYSICIAN Internal Medicine Pulmonary Disease
PROC: 047Q3ZZ Dilation of Left Anterior Tibial Artery, Percutaneous Approach (ICD-10-PCS; 2023-12-06)
PROC: 047U3ZZ Dilation of Left Peroneal Artery, Percutaneous Approach (ICD-10-PCS; 2023-12-06)
PROC: 04FN3ZZ Fragmentation of Left Popliteal Artery, Percutaneous Approach (ICD-10-PCS; 2023-12-06)
PROC: B41D1ZZ Fluoroscopy of Aorta and Bilateral Lower Extremity Arteries using Low Osmolar Contrast (ICD-10-PCS; 2023-12-06)
PROC: 3E05317 Introduction of Other Thrombolytic into Peripheral Artery, Percutaneous Approach (ICD-10-PCS; 2023-12-06)
PROC: 04FQ3ZZ Fragmentation of Left Anterior Tibial Artery, Percutaneous Approach (ICD-10-PCS; 2023-12-06)
DX: E11.52 Type 2 diabetes mellitus with diabetic peripheral angiopathy with gangrene (principal); I70.262 Atherosclerosis of native arteries of extremities with gangrene, left leg; L97.529 Non-pressure chronic ulcer of other part of left foot with unspecified severity; I10 Essential (primary) hypertension; E78.5 Hyperlipidemia, unspecified; I74.3 Embolism and thrombosis of arteries of the lower extremities; E03.9 Hypothyroidism, unspecified; Z87.891 Personal history of nicotine dependence; Z79.4 Long term (current) use of insulin; Z89.511 Acquired absence of right leg below knee; Z79.82 Long term (current) use of aspirin; Z79.01 Long term (current) use of anticoagulants
CPT/HCPCS: 36415; 71045; 75625; 75716; 76937; 80048; 81240; 81241; 82962; 85027; 85300; 85305; 85520; 85610; 85613; 85730; 86146; 86147; 86803; 93005; 93971; C1725; C1760; C1769; C1887; C1894; C9764; C9772; J2997; Q9967

== ENCOUNTER 2024-05-04 08:15 | Day surgery (SDC) | payer MEDICARE, BC, SELFPAY ==
--- NOTE | 2024-05-01 16:25 | PTCARENOTE ---
Using EKG from 12/06/23 per office, this abnormal EKG was used for prior surgery 12/06/23.
[2024-05-04] VITALS (10 sets, daily range): BP systolic 97–112; BP diastolic 33–74; BMI 22.7
[2024-05-04] MEDS: PERIDEX 0.12% ORAL RINSE 15 ML PO (08:48)
[2024-05-04] MEDS: BACTROBAN NASAL 1 GRAM NASAL (08:48)
[2024-05-04 08:53] LABS: Hemoglobin 10.8 g/dL (13.0-18.0); Mean Corp Hgb Conc. 33.8 g/dL (33.0-37.0); Mean Corpuscular Hgb 28.6 pg (27.0-31.0); Mean Corpuscular Volume 84.9 fL (80.0-94.0); Mean Platelet Volume 9.4 fL (7.4-10.4); Platelet Count 211 10^3/uL (130-400); Red Blood Cell Count 3.77 10^6/uL (4.70-6.10); White Blood Cell Count 8.4 10^3/uL (4.8-10.8)
[2024-05-04 08:57] LABS: INR 0.93; PT 12.8 Sec (11.4-14.6)
[2024-05-04 08:58] LABS: APTT 27.3 Sec (23.4-35.0)
[2024-05-04 09:10] LABS: Blood Urea Nitrogen 54 mg/dl (9-20); Calcium 8.8 mg/dl (8.4-10.2); Carbon Dioxide 22 mmol/L (22-30); Chloride 106 mmol/L (98-107); Estimated Creatinine Clearance 31 ml/min; Glucose 118 mg/dl (70-99); Potassium 4.1 mmol/L (3.5-5.1); Sodium 139 mmol/L (135-145); eGFR 32.83
[2024-05-04 09:22] LABS: Glucose - Point of Care 128 mg/dl (70-99)
[2024-05-04] MEDS: NSS 500 IV (09:31)
[2024-05-04 12:17] LABS: Glucose - Point of Care 136 mg/dl (70-99)
--- NOTE | 2024-05-04 12:18 | W.IMMPOSTOP ---
Surgical Immed Post Op Note
-
Primary Surgeon: Dr. Sravan Roberson III, MD
Assisting Surgeon: Chuckie Tobin MD, PhD (PGY-2)
Pre-op Diagnosis: s/p right and left BKA with left BKA stump wound infection and skin necrosis
Post-op Diagnosis: s/p right and left BKA with left BKA stump wound infection and skin necrosis
Procedure Performed: left BKA stump wound debridement
Anesthesia Type: MAC
Specimen / Cultures: None
Estimated Blood Loss: 10cc
Complications: None
Operative Findings: The patient was brought to the OR and placed in the supine position. They were prepped and draped in usual sterile fashion. Sharp debridement of eschar and all necrotic tissue was performed to healthy appearing tissue. The wound
bed was irrigated and hemostasis was achieved. The site was dressed with vaseline gauze, 4x4, abd pads, Kerlix wrap, and MARKO wrap. The patient was transferred to the PACU in stable condition.
--- NOTE | 2024-05-04 13:03 | OR.RPT ---
Operative Report
Operative Report
Date of Operation: 05/04/2024
Pre Op Diagnosis: Nonhealing left below-knee amputation wound
Post Op Diagnosis: Nonhealing left below-knee amputation wound
Procedure: Sharp excisional debridement of left below-knee amputation stump including skin and subcutaneous tissue (wound dimensions 17 cm x 3 cm)
Surgeon: Sravan Roberson III, MD
Industrial Fabric Cutter: Chuckie Tobin MD PhD, PGY2
Anesthesia: General
Complications: None
Estimated Blood Loss: Less than 10 cc
History and Indications for Procedure: 73-year-old male with nonhealing left below-knee amputation wound.
Procedure in Detail: Ariel Watson was correctly identified and placed supine on the operating table. After adequate induction of anesthesia the left leg was positioned, prepped and draped in the usual sterile fashion. Preoperative antibiotics
were administered. A timeout procedure was performed with the nursing and anesthesia staff confirming the patient's identity as well as the nature and laterality of the procedure.
Using a scalpel, scissors and forceps, sharp excisional debridement was performed on the left below-knee amputation wound. Eschar, skin and subcutaneous tissue were sharply debrided from the wound. The deeper tissue was grossly healthy and viable
in appearance. No purulence was identified. Debridement of the ischemic skin and subcutaneous tissue continued to healthy bleeding tissue throughout. The wound dimensions debrided were 17 cm x 3 cm.
The wound was then irrigated with saline. Hemostasis was achieved. Sterile dressings were applied.
The patient tolerated the procedure well and was taken to the PACU in stable condition
Attestation: I was present and responsible for the entire procedure
Signed:
Sravan Roberson III, MD
[facility] Vascular Surgery
[phone] (sgyf)
--- NOTE | 2024-05-04 13:46 | CM ---
Addendum entered by Peggy Francis 05/04/24 15:41:
Received telephone call from [facility], Bernadette Posey who states they can accept Mr. Watson for VNA Services with the start date on 05/05/24. Telephone call to spouse, Dane Batista to update her. The discharge plan is to go
home with his spouse and [facility].
Original Note:
Reviewed chart. Received consult for VNA Services. Met with with MrYani and Mrs. Watson to review VNA Services. He states he has had [facility] in the services in the past and would like to use them again. Telephone call to [facility], ([phone]) to make the referral. Sent referral. Await to hear if they can accept referral.
[2024-05-04] MEDS: PREVNAR 20 0.5 ML IM (14:02)
== END 2024-05-04 14:40 | disposition home or self-care (01) ==
LOC: CATH 08:15
PROVIDERS: ATTENDING PHYSICIAN Surgery Vascular Surgery
DX: T87.44 Infection of amputation stump, left lower extremity (principal); E11.9 Type 2 diabetes mellitus without complications; I10 Essential (primary) hypertension; E78.5 Hyperlipidemia, unspecified; Z87.891 Personal history of nicotine dependence; Z79.01 Long term (current) use of anticoagulants; Z79.82 Long term (current) use of aspirin; Z79.84 Long term (current) use of oral hypoglycemic drugs; Z79.4 Long term (current) use of insulin
CPT/HCPCS: 11042; 11045; 80048; 82962; 85027; 85610; 85730; 90677; G0009

== ENCOUNTER 2024-07-02 10:18 | Day surgery (SDC) | payer MEDICARE, BC, SELFPAY ==
[2024-07-02] VITALS (13 sets, daily range): BP systolic 94–129; BP diastolic 48–74; BMI 24.4
[2024-07-02 10:45] LABS: Hematocrit 30.4 % (39.0-52.0); Hemoglobin 9.8 g/dL (13.0-18.0); Mean Corp Hgb Conc. 32.2 g/dL (33.0-37.0); Mean Corpuscular Hgb 26.6 pg (27.0-31.0); Mean Corpuscular Volume 82.6 fL (80.0-94.0); Mean Platelet Volume 9.6 fL (7.4-10.4); Platelet Count 235 10^3/uL (130-400); Red Blood Cell Count 3.68 10^6/uL (4.70-6.10); Red Cell Dist. Width 14.3 % (11.5-14.5); White Blood Cell Count 7.5 10^3/uL (4.8-10.8)
[2024-07-02 10:54] LABS: INR 1.12; PT 14.7 Sec (11.4-14.6)
[2024-07-02 10:59] LABS: Blood Urea Nitrogen 22 mg/dl (9-20); Calcium 8.7 mg/dl (8.4-10.2); Carbon Dioxide 29 mmol/L (22-30); Chloride 107 mmol/L (98-107); Glucose 150 mg/dl (70-99); Potassium 3.7 mmol/L (3.5-5.1); Sodium 141 mmol/L (135-145); eGFR > 60.00
[2024-07-02] MEDS: PERIDEX 0.12% ORAL RINSE 15 ML PO (11:13)
[2024-07-02] MEDS: BACTROBAN NASAL 1 GRAM NASAL (11:14)
[2024-07-02 11:17] LABS: Glucose - Point of Care 140 mg/dl (70-99)
[2024-07-02] MEDS: VANCOCIN 200 IV (13:38)
--- NOTE | 2024-07-02 14:43 | W.IMMPOSTOP ---
Surgical Immed Post Op Note
-
Primary Surgeon: Karol
Assisting Surgeon: Kaylee
Pre-op Diagnosis: LLE BKA
Post-op Diagnosis: LLE BKA
Procedure Performed: LLE BKA wound debridement
Anesthesia Type: General
Specimen / Cultures: None
Estimated Blood Loss: 5 cc
Complications: None
Operative Findings: Healthy granulation tissue, healing appropriately. Wound debrided and dressed with adaptic.
[2024-07-02 14:57] LABS: Glucose - Point of Care 170 mg/dl (70-99)
[2024-07-02] MEDS: TYLENOL 650 MG PO (15:48)
--- NOTE | 2024-07-02 16:18 | W.PN.UPDATE ---
Update Note
Progress Note Update
Patient would be an ideal candidate and benefit greatly for the use of Santyl to his left lower extremity BKA wound, as it would likely improve healing. Offered prescription of Santyl to patient when he informed me that his wound care physician also
recommended and prescribed Santyl but his insurance company is currently not agreeing to cover the medication. He did note that they are filing a new claim in hopes of getting Santyl covered. We support the wound care physicians recommendations of
the use of this medication for improved wound healing in this patient. At patient's request I did not send a new prescription to the pharmacy as he has an active one ordered, he just cannot fill it due to cost currently.
--- NOTE | 2024-07-02 17:39 | OR.RPT ---
Operative Report
Operative Report
Date of Operation: 07/02/2024
Pre Op Diagnosis: Poorly healing left below-knee amputation wound
Post Op Diagnosis: Poorly healing left below-knee amputation wound
Procedure: Sharp excisional debridement of the left below the knee amputation wound including skin, subcutaneous tissue muscle and fascia (wound dimensions 8 cm x 5 cm)
Surgeon: Sravan Roberson III, MD
Accounts Specialist: Jimmy Page MD PGY1
Anesthesia: Sedation
Complications: None
Estimated Blood Loss: Less than 20 cc
History and Indications for Procedure: 73-year-old male with poorly healing left below-knee amputation wound. He was brought in for sharp excisional debridement.
Procedure in Detail: Ariel Watson was correctly identified and placed supine on the operating table. After adequate induction of anesthesia the left lower extremity was positioned, prepped and draped in the usual sterile fashion. Preoperative
antibiotics were administered. A timeout procedure was performed with the nursing and anesthesia staff confirming the patient's identity as well as the nature and laterality of the procedure.
Using a scalpel, scissors and forceps, sharp excisional debridement was performed on the left below the knee amputation wound. Skin, subcutaneous tissue, muscle and fascia were sharply debrided from the wound. Fibrinous exudate was also sharply
debrided using this technique. The tissue beneath the fibrinous exudate and debrided tissue was healthy in appearance. No purulence was identified. The wound margins were gently probed throughout and did not track anywhere. Debridement of the
tissue continued to healthy bleeding margins throughout. The wound dimensions debrided were 8 cm x 5 cm.
The wound was then irrigated with saline. Hemostasis was achieved. Sterile nonadherent dressings were applied.
The patient tolerated the procedure well and was taken to the PACU in stable condition
Attestation: I was present and responsible for the entire procedure
Signed:
Sravan Roberson III, MD
[facility] Vascular Surgery
[phone] (ellh)
== END 2024-07-02 16:31 | disposition home or self-care (01) ==
LOC: CATH 10:18
PROVIDERS: Nurse Practitioner; ATTENDING PHYSICIAN Surgery Vascular Surgery
DX: T81.89XD Other complications of procedures, not elsewhere classified, subsequent encounter (principal); Y83.9 Surgical procedure, unspecified as the cause of abnormal reaction of the patient, or of later complication, without mention of misadventure at the time of the procedure; Z88.1 Allergy status to other antibiotic agents; Y83.5 Amputation of limb(s) as the cause of abnormal reaction of the patient, or of later complication, without mention of misadventure at the time of the procedure; Z89.512 Acquired absence of left leg below knee
CPT/HCPCS: 11043; 11046; 80048; 82962; 85027; 85610; 85730; 93005